=== PATIENT | male | born 1960 | race Hispanic/Latino ===

== ENCOUNTER 2017-07-08 06:54 | Day surgery (SDC) | payer MEDICAID ==
[2017-07-01 11:33] VITALS: BMI 28.7
[2017-07-08] MEDS ORDERED: Propofol 10 mg/ml Inj (20 ML) ONE (08:46)
[2017-07-08] MEDS ORDERED: Sodium Chloride 0.9% 1,000 ML IV SCH (10:15)
[2017-07-08 10:54] VITALS: BP 121/79; PULSE 62; RESP 18; TEMP 97.6; O2SAT 99
== END 2017-07-08 11:22 | disposition home or self-care (01) ==
LOC: ENDO 06:54
PROVIDERS: ATTEND Internal Medicine
DX: D12.2 Benign neoplasm of ascending colon (principal); D12.3 Benign neoplasm of transverse colon; K20.8 Other esophagitis; K29.70 Gastritis, unspecified, without bleeding; K64.8 Other hemorrhoids; K64.4 Residual hemorrhoidal skin tags; K31.89 Other diseases of stomach and duodenum; Z80.0 Family history of malignant neoplasm of digestive organs; I10 Essential (primary) hypertension; E78.5 Hyperlipidemia, unspecified; D69.6 Thrombocytopenia, unspecified; M54.5 Low back pain; N52.9 Male erectile dysfunction, unspecified
CPT/HCPCS: 43239; 45380; 88305; 88342; J2001; J2704; J3010; J7040 ×2